=== PATIENT | male | born 2000 | race Caucasian/White ===

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

== ENCOUNTER 2021-05-14 15:06 | Emergency (ER) | payer OTHER ==
[~2021-05-14 15:06] MED LIST changes: +ONDANSETRON ODT4 MG PO
[2021-05-14 16:14] LABS: BASOPHIL 0.3 % (0-2); EOSINOPHIL 0.3 % (0-5); HCT 49.9 % (42.0-52.0); HGB 17.2 g/dl (13.2-18.0); LYMPHOCYTE 12.3 % (15-48); MCH 28.8 pg (25.0-31.0); MCHC 34.5 g/dL (32.0-36.0); MCV 83.6 fL (78.0-100.0); MONOCYTE 6.6 % (0-12); MPV 10.7 fL (6.0-9.5); NEUTROPHIL 79.6 % (41-80); NRBC 0; PLT 340 K/uL (150-400); RBC 5.97 M/uL (4.70-6.00); RDW 13.2 % (11.5-14.0); WBC 17.4 K/uL (4.0-10.5)
[2021-05-14 16:15] LABS: BILIRUBIN NEGATIVE (NEGATIVE); BLOOD NEGATIVE Ery/uL (NEGATIVE); CLARITY CLEAR (CLEAR); COLOR YELLOW (YELLOW); GLUCOSE (U) NORMAL (NORMAL); LEUKOCYTES NEGATIVE Leu/uL (NEGATIVE); NITRITE NEGATIVE (NEGATIVE); PROTEIN NEGATIVE (NEGATIVE); SPECIFIC GRAVITY >=1.030 (1.001-1.030); UROBILINOGEN 0.2 mg/dL (0.2-1.0)
[2021-05-14 16:18] LABS: AMPHETAMINES NEGATIVE (NEGATIVE); BARBITURATES NEGATIVE (NEGATIVE); ECSTASY (MDMA) NEGATIVE (NEGATIVE); MARIJUANA (THC) POSITIVE (NEGATIVE); METHADONE NEGATIVE (NEGATIVE); OPIATES POSITIVE (NEGATIVE); OXYCODONE NEGATIVE (NEGATIVE)
[2021-05-14 16:48] LABS: CORONAVIRUS 2019 SARS-COV-2 NEGATIVE (NEGATIVE); INFLUENZA A NAA NEGATIVE (NEGATIVE)
[2021-05-14 17:54] LABS: ALBUMIN 3.6 g/dL (3.4-5.0); BILIRUBIN - TOTAL 0.5 mg/dL (0.2-1.0); BUN/CREAT RATIO (CALC) 11.2 RATIO; CREATININE 0.8 mg/dL (0.67-1.17); GLOBULIN (CALCULATION) 3.1 g/dL; POTASSIUM 3.8 mmol/L (3.5-5.1); TOTAL PROTEIN 6.7 g/dL (6.4-8.2)
[2021-05-14 18:08] LABS: LACTIC ACID 1.2 mmol/L (0.4-1.9)
[2021-05-14] MEDS ORDERED: METRONIDAZOLE500 MG PO (18:57)
[2021-05-14] MEDS ORDERED: BENTYL10 MG PO (18:57)
[2021-05-14] MEDS ORDERED: CIPRO500 MG PO (18:57)
[2021-05-14] MEDS ORDERED: PHENERGAN25 M1 PO (18:57)
== END 2021-05-14 19:18 | disposition home or self-care (01) ==
LOC: FER 15:06
PROVIDERS: Nurse Practitioner Family
DX: K52.9 Noninfective gastroenteritis and colitis, unspecified (principal); F17.290 Nicotine dependence, other tobacco product, uncomplicated; F19.90 Other psychoactive substance use, unspecified, uncomplicated; I10 Essential (primary) hypertension; Z20.822 Contact with and (suspected) exposure to COVID-19; Z88.8 Allergy status to other drugs, medicaments and biological substances
CPT/HCPCS: 36415; 80053; 80305; 81003; 82150; 83605; 83690; 85025; J1885; J2270; J2405; J2550; J7030; Q9967; U0002